=== PATIENT | female | born 1955 | race Caucasian/White ===

== ENCOUNTER → 2018-05-22 | Outpatient (CLI) | payer BC ==
--- NOTE | 2018-05-24 11:18 | MM ---
Reason for exam: screening (asymptomatic). Last mammogram was performed 5 years and 3 months ago. History: Patient is postmenopausal. Physical Findings: A clinical breast exam by your physician is recommended on an annual basis and results should be correlated with mammographic findings. MG 3D Screening Mammo W/Cad Bilateral CC and MLO view(s) were taken. Prior study comparison: February 15, 2013, mammogram, performed at [place]. There are scattered fibroglandular densities. No significant changes when compared with prior studies. ASSESSMENT: Negative, BI-RAD 1 RECOMMENDATION: Routine screening mammogram of both breasts in 1 year.
== END ==
LOC: RADMAMWWP 15:38
PROVIDERS: ATTEND Family Medicine
DX: Z12.31 Encounter for screening mammogram for malignant neoplasm of breast (principal)
CPT/HCPCS: 77063; 77067

== ENCOUNTER → 2019-09-18 | Outpatient (CLI) | payer BC, MEDICARE ==
--- NOTE | 2019-09-19 12:05 | MM ---
Reason for exam: screening (asymptomatic). Last mammogram was performed 1 year and 4 months ago. History: Patient is postmenopausal. Physical Findings: A clinical breast exam by your physician is recommended on an annual basis and results should be correlated with mammographic findings. MG Screening Mammo w CAD Bilateral CC and MLO view(s) were taken. Prior study comparison: May 22, 2018, bilateral MG 3d screening mammo w/cad. February 15, 2013, mammogram, performed at [place]. There are scattered fibroglandular densities. Benign appearing calcifications in the left breast. No suspicious abnormality. Focal asymmetry of the right upper outer quadrant is stable. No significant changes when compared with prior studies. ASSESSMENT: Benign, BI-RAD 2 RECOMMENDATION: Routine screening mammogram of both breasts in 1 year. Manage on a clinical basis with regard to left breast reported swelling. If there is focal pain diagnostic mammogram and ultrasound would be recommended.
== END | disposition home or self-care (01) ==
LOC: RADMAMWWP 07:42
PROVIDERS: ATTEND Family Medicine
DX: Z12.31 Encounter for screening mammogram for malignant neoplasm of breast (principal)
CPT/HCPCS: 77067

== ENCOUNTER → 2020-01-29 | Outpatient (CLI) | payer BC ==
--- NOTE | 2020-01-30 00:25 | CONS ---
CONSULTATION This patient is a 64-year-old lady who has been evaluated in the sleep center for obstructive sleep apnea-hypopnea syndrome. HISTORY OF PRESENT ILLNESS/SLEEP-WAKE EVALUATION: Patient's has long history of obstructive sleep apnea. She is on treatment with CPAP, which has been done in another institution several years ago. Presently, her sleep schedule from 10 p.m. until 6:10 a.m. No problems with falling asleep. No TV in bedroom. She usually sleeps on the stomach position. She wakes up from sleep 2 times with up to 2 episodes of nocturia. During the day sometimes she feels sleepiness. Gwinner Sleepiness Scale increased to 10. She may take up to 3 naps a day when she is sleepy. Her machine is old. PAST MEDICAL HISTORY: Positive for hip problems, episodes of atrial fibrillation during surgery in 2011. PAST SURGICAL HISTORY: Left hip replacement 2009, right hip replacement 2011. MEDICATIONS: A baby aspirin, Advil, and Claritin. SOCIAL HISTORY: Negative for smoking or using alcohol. REVIEW OF SYSTEMS: Awakenings from sleep, sleepiness during the day. PHYSICAL EXAMINATION: GENERAL: lady without distress. VITAL SIGNS: BP 146/82, HR 72, RR 16, height 5 feet 2 inches, weight 242, body mass index 44.2, temperature 98.3, oxygen saturation at room air 99%. HEENT: PERRLA, EOMI. Oropharynx small oropharyngeal air space, wide pillars, moderate low soft palate. Neck 15 inches in circumference. NECK: Supple, no JVD. Thyroid is not palpable. LUNGS: Clear to percussion and to auscultation. Good air exchange. No wheezing or rhonchi. HEART: S1, S2 regular. No murmurs, gallops, or rubs. ABDOMEN: Obese. EXTREMITIES: No clubbing or cyanosis. EQUIPMENT SERVICE ASSOCIATE: Awake, alert, and oriented X3. Cranial nerves 2 to 7 intact. There is no fasciculation or atrophy. noted. No focal deficits observed. IMPRESSION: 1. Obstructive sleep apnea-hypopnea syndrome for many years, awakenings from sleep while using her CPAP, sleepiness during the day. Gwinner Sleepiness Scale is 10. 2. Obesity, body mass index 44.2. 3. Status post right hip replacement. 4. Status post left hip replacement. 5. History of atrial fibrillation. PLAN: 1. Home sleep apnea test for evaluation of patient breathing during the sleep. 2. Following plan depending of results of the sleep study. 3. Prescription for new CPAP unit after evaluation will be done. 4. Losing weight. 5. No driving if feeling sleepiness. Thank you very much for referring this patient for consultation. Sincerely, Manuel Mancia MD, PhD, FAASM Diplomat of [place] Board of Medical Specialties Citizen [place] Board of Internal Medicine Director Instrumentation of [facility] [place] MMODL / YOLANDAN: [id number] /
== END | disposition home or self-care (01) ==
LOC: SLEEP 13:49
PROVIDERS: ATTEND Internal Medicine
DX: G47.33 Obstructive sleep apnea (adult) (pediatric) (principal); E66.9 Obesity, unspecified; Z79.82 Long term (current) use of aspirin; Z68.41 Body mass index [BMI] 40.0-44.9, adult; Z96.641 Presence of right artificial hip joint; Z96.642 Presence of left artificial hip joint; Z96.643 Presence of artificial hip joint, bilateral; Z86.79 Personal history of other diseases of the circulatory system
CPT/HCPCS: 99211

== ENCOUNTER → 2020-04-08 | Outpatient (CLI) | payer BC ==
--- NOTE | 2020-04-08 22:16 | SFUN ---
SLEEP CENTER FOLLOW UP NOTE DATE OF SERVICE: 04/08/2020 This patient is a 64-year-old lady has been followed in the sleep center for treatment of obstructive sleep apnea-hypopnea syndrome. The patient is successfully using her new CPAP unit. She likes it and sleeps well with the CPAP. Gates Sleepiness Scale today, though, is slightly increased at 13. I explained to the patient in detail the results of her home sleep apnea test, which showed apnea-hypopnea index 15.6. I checked the patient's CPAP unit. Range of pressure is from 5 to 20, average pressure 11 cm of water, usage, 30/30 nights for more than 4 hours with average usage 7.5 hours per night. Leak is only 2 L/minute. Apnea-hypopnea index 0.7, which is absolutely perfect. MEDICATIONS: Claritin, Advil. PHYSICAL EXAMINATION: GENERAL: A pleasant patient in no distress. VITAL SIGNS: BP 136/76, HR 78, RR 16, weight 242, temperature 98.2, oxygen saturation at room air 97%. HEENT: PERRLA, EOMI. Evaluation of oropharynx showed tongue protrudes midline. Moderately low position of soft palate. Mallampati III. NECK: Supple. No JVD. Thyroid is not palpable. LUNGS: Clear to percussion and to auscultation. Good air exchange. No wheezing or rhonchi. HEART: S1, S2 regular. No murmurs, gallops or rubs. ABDOMEN: Obese. EXTREMITIES: No clubbing or cyanosis. ADDICTION PSYCHIATRIST: Awake, alert, and oriented X3. Cranial nerves 2 to 7 intact. There is no fasciculation or atrophy. noted. No focal deficits observed. IMPRESSION: 1. Obstructive sleep apnea-hypopnea syndrome. Patient demonstrated good compliance with treatment, benefitting from treatment. 2. Obesity. 3. Status post right hip replacement. 4. Status post left hip replacement. 5. History of atrial fibrillation. PLAN: 1. Patient will continue to use PAP equipment every night for the whole night. 2. Sleep hygiene with regular time in bed for at least 7-1/2 to 8 hours. 3. Precautions related to driving. No driving if feeling sleepiness. 4. I will maintain all necessary prescription for PAP supplies including mask, tube, filters. 5. Watching weight. 6. No driving if feeling sleepiness. 7. Follow-up visit in 6 months or earlier if patient has any problems. Thank you very much for allowing me to participate in the management of your patient. Sincerely, Manuel Mancia MD, PhD, FAASM Diplomat of [place] [employer] Specialties [place] [employer] Medicine Filer Repairer of [facility] [place] MMTACHO / TAYO: [id number] /
== END | disposition home or self-care (01) ==
LOC: SLEEP 15:19
PROVIDERS: ATTEND Internal Medicine
DX: G47.33 Obstructive sleep apnea (adult) (pediatric) (principal); E66.9 Obesity, unspecified; Z96.643 Presence of artificial hip joint, bilateral; Z86.79 Personal history of other diseases of the circulatory system; Z99.89 Dependence on other enabling machines and devices

== ENCOUNTER → 2021-01-05 | Outpatient (CLI) | payer BC ==
--- NOTE | 2021-01-06 14:31 | XR ---
Bilateral shoulders HISTORY: Chronic pain 3 views of each shoulder submitted There is overlying artifact. Arthropathy is present at the acromioclavicular joints. No fracture or d islocation. Distal acromial spur is noted on the right. There is marked arthropathy in the right join t space loss, subchondral geode formation and sclerosis, marginal spurring. Suspect synovial chondrom atosis, loose bodies at the level of the left shoulder with air is also joint space loss and marginal spurring, subchondral sclerosis. IMPRESSION: Osteoarthritis. Possible loose bodies left shoulder. Correlate for impingement.
== END | disposition home or self-care (01) ==
LOC: RADXRYALE 16:49
PROVIDERS: ATTEND Physician Assistant Medical
DX: M19.011 Primary osteoarthritis, right shoulder (principal); M19.012 Primary osteoarthritis, left shoulder

== ENCOUNTER → 2021-10-06 | Outpatient (CLI) | payer BC ==
[2021-10-06 15:21] LABS: INR 0.9 (<1.2); Partial Thromboplastin Time 23.8 sec (22.0-30.0); Prothrombin Time 10.1 sec (9.0-12.0)
[2021-10-06 15:33] LABS: Amorphous Sediment,Urine Rare /hpf; Appearance,Urine Cloudy (Clear); Bacteria,Urine Moderate /hpf; Bilirubin,Urine Negative (Negative); Blood,Urine Negative (Negative); Color,Urine Yellow; Glucose,Urine (UA) Negative (Negative); Ketones,Urine Negative (Negative); Leukocyte Esterase,Urine Negative (Negative); Mucus,Urine Rare /hpf; Nitrite,Urine Negative (Negative); Protein,Urine Negative (Negative); RBC,Urine 1 /hpf (0-5); Specific Gravity,Urine 1.021 (1.001-1.035); Squamous Epithelial Cell,Urine 2 /hpf (0-4); Urobilinogen,Urine <2.0 mg/dL (<2.0); WBC,Urine 1 /hpf (0-5)
[2021-10-07 01:09] LABS: African American GFR (CKD) 69.3 (60.0-200.0); Albumin 4.3 g/dL (3.8-4.9); Albumin/Globulin Ratio 1.41 (1.60-3.17); Anion Gap 15.4 mmol/L (10.00-18.00); BUN/Creat Ratio 18.81 Ratio (12.00-20.00); Blood Urea Nitrogen 18.3 mg/dL (9.0-27.0); Calcium 9.3 mg/dL (8.7-10.3); Carbon Dioxide 22.4 mmol/L (20.0-27.5); Non-African American GFR(CKD) 59.8 (60.0-200.0); Potassium 3.9 mmol/L (3.5-5.5); Total Bilirubin 0.5 mg/dL (0.30-1.20); Total Protein 7.3 g/dL (6.2-8.2)
[2021-10-07 01:51] LABS: HCT 44.9 % (37.2-46.3); HGB 14.5 g/dL (12.0-15.0); MCH 31.2 pg (27.0-32.0); MCHC 32.3 g/dL (32.0-37.0); MCV 96.6 fL (80.0-97.0); Mean Platelet Volume 11.5 fL (9.5-12.2); NRBC Per 100 WBC 0 /100 WBCS (0.0-0.0); Platelet Count 276 X 10*3/uL (140-440); RBC 4.65 X 10*6/uL (4.10-5.20); RDW 13.1 % (11.5-14.5); WBC 9.11 X 10*3/uL (4.50-10.00)
== END | disposition home or self-care (01) ==
LOC: LABPAT 14:24
PROVIDERS: ATTEND Orthopaedic Surgery
DX: Z01.812 Encounter for preprocedural laboratory examination (principal)
CPT/HCPCS: 80053; 81001; 85027; 85610; 85730; 87070; 93005

== ENCOUNTER 2021-10-24 12:16 | Day surgery (SDC) | payer BC ==
[2021-10-19 10:51] VITALS: BMI 44.2
[~2021-10-24 12:16] MED LIST: ACETAMINOPHEN TAB 500 MG TAB PO PRN; DEXAMETHASONE SOD PHOSPHATE 4 MG/ML 1 ML VIAL IV ONE; GABAPENTIN 300 MG CAP PO PRN; HYDROmorphone 0.5 MG/0.5 ML SYRINGE IVP PRN; LACTATED RINGERS 1,000 ML IV SCH; LIDOCAINE 1% (10MG/ML) FOR IV START INTRADERMA PRN; MELOXICAM 7.5 MG TAB PO PRN; MIDAZOLAM 2 MG/2 ML VIAL IV PRN; ONDANSETRON 4 MG/2 ML VIAL IVP ONE; TRANEXAMIC ACID IN NACL,ISO-OS 1,000 MG in SALINE 1 100ML.BAG IVPB PRN
[2021-10-24] MEDS ORDERED: HYDROmorphone 0.2 MG/1 ML SYRINGE IVP PRN (13:10)
[2021-10-24] MEDS ORDERED: HYDROmorphone 0.5 MG/0.5 ML SYRINGE IVP PRN ×2 (13:10)
[2021-10-24] MEDS ORDERED: ONDANSETRON 4 MG/2 ML VIAL IVP PRN (13:10)
[2021-10-24 13:11] LABS: Glucose,Whole Blood 109 mg/dL (75-99)
[2021-10-24] MEDS ORDERED: HYDROcodone/APAP 7.5-325MG 1 EACH TAB PO PRN ×2 (13:12)
[2021-10-24] MEDS ORDERED: SODIUM CHLORIDE 0.9% 1,000 ML IV SCH (13:15)
[2021-10-24] MEDS ORDERED: MIDAZOLAM 2 MG/2 ML VIAL IVP ONE (13:48)
[2021-10-24] MEDS ORDERED: fentaNYL (PF) 50 MCG/ML 2 ML AMP IVP ONE (13:49)
[2021-10-24] MEDS ORDERED: ROCURONIUM 10 MG/ML (5 ML VIAL) IV ONE (14:05)
[2021-10-24] MEDS ORDERED: ROPIVACAINE 5 MG/ML 30 ML VIAL ONE (14:05)
[2021-10-24] MEDS ORDERED: DEXAMETHASONE SOD PHOSPHATE 4 MG/ML 1 ML VIAL ONE (14:05)
[2021-10-24] MEDS ORDERED: fentaNYL (PF) 50 MCG/ML 2 ML AMP ONE (14:05)
[2021-10-24] MEDS ORDERED: NEOSTIGMINE 1 MG/ML 10 ML VIAL ONE (14:05)
[2021-10-24] MEDS ORDERED: TRANEXAMIC ACID IN NACL,ISO-OS 1,000 MG/100 ML BAG ONE (14:05)
[2021-10-24] MEDS ORDERED: GLYCOPYRROLATE 0.2 MG/ML 2 ML VIAL ONE (14:05)
[2021-10-24] MEDS ORDERED: PROPOFOL 10 MG/ML 20 ML VIAL IV ONE (14:05)
[2021-10-24] MEDS ORDERED: SUCCINYLCHOLINE CHLORIDE 100 MG/5 ML SYR IV ONE (14:05)
[2021-10-24] MEDS ORDERED: ceFAZolin 1,000 MG in SODIUM CHLORIDE 0.9% 1,000 ML IRRIGATION ONE (14:08)
--- NOTE | 2021-10-24 15:03 | P.OP ---
Date of Procedure: 10/24/21 Preoperative Diagnosis: Osteoarthritis right shoulder Postoperative Diagnosis: Osteoarthritis right shoulder Procedure(s) Performed: Right shoulder hemiarthroplasty Implants: Biomet Howell humeral resurfacing head, size 4 Anesthesia: JATINDER Surgeon: Cy Jean Explosive Operator #1: Jacquelin Pedersen Estimated Blood Loss (ml): 30 Pathology: none sent Condition: stable Disposition: PACU Indications for Procedure: This is a 66-year-old female that presented to my office with painful arthritis right shoulder. We discussed the surgical treatment options including conservative care, hemiarthroplasty, and total shoulder arthroplasty. After lengthy discussion she has decided she wishes to proceed with a hemiarthroplasty of her right shoulder with possible total shoulder arthroplasty, and informed consent was obtained. Operative Findings: Operative findings are consistent with severe osteoarthritis of the right shoulder, mainly limited to the humeral head. Description of Procedure: The patient was seen in the preoperative area, consent was reviewed, and operative site was marked with a skin marker. Patient was then brought to the operating room and given preoperative antibiotics intravenously. Patient was also given 1 g of Tranexamic acid intravenously. A general anesthetic was administered by the anesthesia department. A Dela Cruz catheter was placed by the nursing staff. The patient was then placed in a beachchair position with the bony prominences well-padded and the head secured. The shoulder was then prepped and draped in the usual sterile fashion. A universal timeout was then performed, which confirmed the patient's name, surgical site, ALLERGIES, and consent. A standard deltopectoral approach was performed. The skin and subcutaneous tissue was sharply dissected down to the deltoid fascia. The cephalic vein was then identified and retracted medially. The deltopectoral interval was then utilized to expose the subscapularis tendon. A retractor was then placed under the coracobrachialis tendon retracted medially, and the deltoid. The axillary nerve is palpated and protected throughout the procedure. The subscapularis tendon was then released and retracted medially. The humeral head was then exposed easily. After the humeral head was exposed, osteophytes were removed with a Ronguer. The glenoid was visualized and found to have a mild amount of arthrosis, but compatible for hemiarthroplasty. The proximal humerus was exposed. After all the osteophytes and then removed the shoulder was measured and found to be a size 4 implant. Using the drill guide for size 4 implant, the guidewire was placed in the center of the humeral head. Next, using appropriate reamer humeral head was then reamed. Next, the central plug was then reamed over the guidewire. The guidewire was then removed and the implant was opened. The final humeral implant was impacted and fully seated on the proximal humerus. The shoulder was then reduced and taken through a range of motion and found to be stable with no evidence of any crepitance. Shoulder was then irrigated with pulsatile lavage. The shoulder was then irrigated with Irrisept solution. A second dose of 1 g of Tranexamic acid was given. The subscapularis was then repaired with #1 Vicryl. The deltopectoral interval was then closed with #1 Vicryl as well. The subcutaneous tissues were closed with 2-0 Vicryl then 3-0 strata fix suture. Exofin skin glue was applied. A sterile dressing was then applied, the patient was transported to the recovery room in an arm sling in stable condition. The visitor services information assistant JOSEFA Aguilar was required due the complexity of surgery and the need for a skilled surgical coordinator.
[2021-10-24 15:39] VITALS: TEMP 97.1
--- NOTE | 2021-10-24 16:11 | XR ---
EXAMINATION TYPE: XR shoulder limited RT DATE OF EXAM: 10/24/2021 COMPARISON: NONE HISTORY: 66-year-old female postoperative evaluation right shoulder TECHNIQUE: Single AP view FINDINGS: Images show interval placement of a resurfacing right shoulder arthroplasty. Alignment appe ars grossly anatomic. Possible slight narrowing of the subacromial space due to the resurfacing compo nent. No acute fracture or dislocation. IMPRESSION: Interval placement of a resurfacing right shoulder arthroplasty. The subacromial space appears somewh at narrowed. This may be projectional. Recommend clinical correlation.
[2021-10-24 16:17] VITALS: PULSE 57
[2021-10-24 16:33] VITALS: BP 133/74; RESP 18
--- NOTE | 2021-10-24 17:17 | P.ANPRN ---
Procedure Note - Anesthesia - Nerve Block Performed Right Interscalene Single Time Out Performed: Yes Date of Procedure: 10/24/21 Procedure Start Time: 13:47 Procedure Stop Time: 13:55 Location of Patient: PreOp Indication: Requested by Surgeon Specifically requested for management of pain by DrAshley: Cy Jean Sedation Type: Sedate with meaningful contact maintained Preparation: Sterile Prep Position: Supine Needle Types: Pajunk Needle Gauge: 21 Ultrasound used to visualize needle placement: Yes Ultrasound used to observe medication spread: Yes Injectate: 0.5% Ropivacaine (see comment for volume) (25 ml + 4 mg Dexamethason) Blood Aspirated: No Pain Paresthesia on Injection Noted: No Resistance on Injection: Normal Image Stored and Saved: Yes Events: Uneventful and Well Tolerated
== END 2021-10-24 17:11 | disposition home or self-care (01) ==
LOC: OR 12:16
PROVIDERS: ATTEND Orthopaedic Surgery
DX: M19.011 Primary osteoarthritis, right shoulder (principal)
CPT/HCPCS: 23470; 64415; 76942; 73020; C1776; J2250; J1100; J2710; J0690 ×2; J2405; J3010; J2795; J0330; J2704

== ENCOUNTER → 2022-01-09 | Outpatient (CLI) | payer BC ==
[2022-01-09 10:18] LABS: INR 0.9 (<1.2); Partial Thromboplastin Time 23.7 sec (22.0-30.0); Prothrombin Time 10.2 sec (9.0-12.0)
[2022-01-09 14:32] LABS: HCT 42.7 % (37.2-46.3); HGB 13.7 g/dL (12.0-15.0); MCH 30.8 pg (27.0-32.0); MCHC 32.1 g/dL (32.0-37.0); Mean Platelet Volume 10.8 fL (9.5-12.2); NRBC Per 100 WBC 0 /100 WBCS (0.0-0.0); Platelet Count 259 X 10*3/uL (140-440); RBC 4.45 X 10*6/uL (4.10-5.20); RDW 13.9 % (11.5-14.5); WBC 6.97 X 10*3/uL (4.50-10.00)
[2022-01-09 14:44] LABS: African American GFR (CKD) 107.1 (60.0-200.0); Albumin 4.2 g/dL (3.8-4.9); Albumin/Globulin Ratio 1.49 (1.60-3.17); Anion Gap 11.8 mmol/L (10.00-18.00); BUN/Creat Ratio 27.68 Ratio (12.00-20.00); Blood Urea Nitrogen 17.3 mg/dL (9.0-27.0); Calcium 9.2 mg/dL (8.7-10.3); Globulin 2.8 g/dL (1.6-3.3); Non-African American GFR(CKD) 92.4 (60.0-200.0); Potassium 4.1 mmol/L (3.5-5.5); Total Bilirubin 0.7 mg/dL (0.30-1.20)
[2022-01-09 15:39] LABS: Appearance,Urine Clear (Clear); Bilirubin,Urine Negative (Negative); Blood,Urine Negative (Negative); Color,Urine Yellow (Yellow); Ketones,Urine Negative (Negative); Nitrite,Urine Negative (Negative); Specific Gravity,Urine 1.008 (1.001-1.030); Urobilinogen,Urine 0.2 (0.2,1.0)
== END | disposition home or self-care (01) ==
LOC: LABWHC1 09:10
PROVIDERS: ATTEND Orthopaedic Surgery
DX: Z01.812 Encounter for preprocedural laboratory examination (principal)
CPT/HCPCS: 36415; 80053; 81003; 85027; 85610; 85730; 87070

== ENCOUNTER 2022-01-30 05:33 | Day surgery (SDC) | payer BC ==
[2022-01-26 15:35] VITALS: BMI 44.2
[~2022-01-30 05:33] MED LIST changes: -DEXAMETHASONE SOD PHOSPHATE 4 MG/ML 1 ML VIAL IV ONE; -HYDROmorphone 0.5 MG/0.5 ML SYRINGE IVP PRN; -LACTATED RINGERS 1,000 ML IV SCH; -LIDOCAINE 1% (10MG/ML) FOR IV START INTRADERMA PRN; -MIDAZOLAM 2 MG/2 ML VIAL IV PRN; -ONDANSETRON 4 MG/2 ML VIAL IVP ONE
[2022-01-30] MEDS ORDERED: HYDROmorphone 0.5 MG/0.5 ML SYRINGE IVP PRN (05:36)
[2022-01-30] MEDS ORDERED: ONDANSETRON 4 MG/2 ML VIAL IVP ONE (05:36)
[2022-01-30] MEDS ORDERED: LACTATED RINGERS 1,000 ML IV SCH (05:36)
[2022-01-30] MEDS ORDERED: LIDOCAINE 1% (10MG/ML) FOR IV START INTRADERMA PRN (05:36)
[2022-01-30 06:27] LABS: Glucose,Whole Blood 137 mg/dL (70-110)
[2022-01-30] MEDS ORDERED: fentaNYL (PF) 50 MCG/ML 2 ML AMP ONE (07:00)
[2022-01-30] MEDS ORDERED: SUCCINYLCHOLINE CHLORIDE 100 MG/5 ML SYR IV ONE (07:00)
[2022-01-30] MEDS ORDERED: LIDOCAINE 2% INJ 20 MG/ML (2 ML VIAL) ONE (07:00)
[2022-01-30] MEDS ORDERED: ROPIVACAINE 5 MG/ML 30 ML VIAL ONE (07:00)
[2022-01-30] MEDS ORDERED: PROPOFOL 10 MG/ML 20 ML VIAL IV ONE (07:00)
[2022-01-30] MEDS ORDERED: MIDAZOLAM 2 MG/2 ML VIAL ONE (07:00)
[2022-01-30] MEDS ORDERED: TRANEXAMIC ACID IN NACL,ISO-OS 1,000 MG/100 ML BAG ONE (07:00)
[2022-01-30] MEDS ORDERED: DEXAMETHASONE SOD PHOSPHATE 4 MG/ML 1 ML VIAL ONE (07:00)
[2022-01-30] MEDS ORDERED: PHENYLEPHRINE-0.9% NACL SYG 1,000 MCG/10 ML SYRINGE ONE (07:00)
[2022-01-30] MEDS ORDERED: ceFAZolin 1,000 MG in SODIUM CHLORIDE 0.9% 1,000 ML IRRIGATION ONE (07:05)
[2022-01-30 07:06] VITALS: RESP 16
--- NOTE | 2022-01-30 07:41 | P.ANPRN ---
Procedure Note - Anesthesia - Nerve Block Performed Left Interscalene Single Time Out Performed: Yes ([id number]) Date of Procedure: 01/30/22 Procedure Start Time: 06:53 Procedure Stop Time: 06:57 Location of Patient: PreOp Indication: Acute Post-Operative Pain, Requested by Surgeon Specifically requested for management of pain by DrAshley: Cy Jean Sedation Type: Sedate with meaningful contact maintained Preparation: Sterile Prep Position: Supine Catheter: None Needle Types: Pajunk Needle Gauge: 21 Ultrasound used to visualize needle placement: Yes Ultrasound used to observe medication spread: Yes Injectate: 0.5% Ropivacaine (see comment for volume) (30cc + 4cc decadron) Blood Aspirated: No Pain Paresthesia on Injection Noted: No Resistance on Injection: Normal Image Stored and Saved: Yes Events: Uneventful and Well Tolerated
--- NOTE | 2022-01-30 08:00 | P.OP ---
Date of Procedure: 01/30/22 Preoperative Diagnosis: Severe osteoarthritis left shoulder Postoperative Diagnosis: Severe osteoarthritis left shoulder Procedure(s) Performed: Hemiarthroplasty left shoulder Implants: Biomet Howell humeral resurfacing head, size 4 Anesthesia: JATINDER Surgeon: Cy Jean Scrub Tech #1: Lauren Carlson Estimated Blood Loss (ml): 25 Pathology: none sent Condition: stable Disposition: PACU Indications for Procedure: This is a 66-year-old female presented to my office with pain in her left shoulder secondary to osteoarthritis. She's had a prior right shoulder hemiarthroplasty was then well wishes to have the same procedure for her left shoulder. Informed consent was obtained. Operative Findings: The operative findings are consistent with severe osteoarthritis of left shoulder Description of Procedure: The patient was seen in the preoperative area, consent was reviewed, and operative site was marked with a skin marker. Patient was then brought to the operating room and given preoperative antibiotics intravenously. Patient was also given 1 g of Tranexamic acid intravenously. A general anesthetic was administered by the anesthesia department. A Dela Cruz catheter was placed by the nursing staff. The patient was then placed in a beachchair position with the bony prominences well-padded and the head secured. The shoulder was then prepped and draped in the usual sterile fashion. A universal timeout was then performed, which confirmed the patient's name, surgical site, ALLERGIES, and consent. A standard deltopectoral approach was performed. The skin and subcutaneous tissue was sharply dissected down to the deltoid fascia. The cephalic vein was then identified and retracted medially. The deltopectoral interval was then utilized to expose the subscapularis tendon. A retractor was then placed under the coracobrachialis tendon retracted medially, and the deltoid. The axillary nerve is palpated and protected throughout the procedure. The subscapularis tendon was then released and retracted medially. The humeral head was then exposed easily. After the humeral head was exposed, osteophytes were removed with a Ronguer. The glenoid was inspected have just mild arthrosis. The shoulder was sized and found to be a size 4. Size 4 trial was then placed over the humeral head and a guide pin was inserted into the center of the humeral head. Size 4 reamer was then used to ream the humeral head. The central hole was then drilled. The components were then opened and implanted impacted. The shoulder was then reduced and taken through a full range of motion and found to be stable. Shoulder was then irrigated with pulsatile lavage. The shoulder was then irrigated with Irrisept solution. A second dose of 1 g of Tranexamic acid was g iven. The subscapularis was then repaired with #1 Vicryl. The deltopectoral interval was then closed with #1 Vicryl as well. The subcutaneous tissues were closed with 3-0 Vicryl followed by 30 strata fix suture. Exofin glue was placed on the skin. A sterile dressing was then applied, the patient was transported to the recovery room in an arm sling in stable condition. The optometrist assistant JOSEFA White was required due the complexity of surgery and the need for a skilled surgical training specialist.
[2022-01-30 08:20] VITALS: TEMP 98.4
--- NOTE | 2022-01-30 08:43 | XR ---
EXAMINATION TYPE: XR shoulder limited LT DATE OF EXAM: 01/30/2022 COMPARISON: 10/24/2021 HISTORY: Postop replacement TECHNIQUE: AP left shoulder FINDINGS: Humeral head prosthesis is in place. There is stable calcification inferior to the humeral head prosthesis. Acromioclavicular junction appears normal. No acute fractures are evident. IMPRESSION: 1. No acute fractures post humeral head replacement.
[2022-01-30] MEDS ORDERED: LACTATED RINGERS 1,000 ML IV ONE (10:05)
[2022-01-30 10:48] VITALS: PULSE 77
[2022-01-30 11:08] VITALS: BP 135/83
[2022-01-30] MEDS ORDERED: ceFAZolin 2 GM in SODIUM CHLORIDE 0.9% 100 ML IVPB ONE (13:00)
== END 2022-01-30 11:40 | disposition home or self-care (01) ==
LOC: OR 05:33
PROVIDERS: ATTEND Orthopaedic Surgery
DX: M19.012 Primary osteoarthritis, left shoulder (principal); M25.511 Pain in right shoulder; G89.18 Other acute postprocedural pain; Z96.611 Presence of right artificial shoulder joint; Z96.643 Presence of artificial hip joint, bilateral; Z96.653 Presence of artificial knee joint, bilateral; Z79.82 Long term (current) use of aspirin; Z79.899 Other long term (current) drug therapy; Z88.8 Allergy status to other drugs, medicaments and biological substances; Z88.7 Allergy status to serum and vaccine; F17.210 Nicotine dependence, cigarettes, uncomplicated; E11.69 Type 2 diabetes mellitus with other specified complication; E78.2 Mixed hyperlipidemia; E55.9 Vitamin D deficiency, unspecified; G47.33 Obstructive sleep apnea (adult) (pediatric); E66.9 Obesity, unspecified; Z68.41 Body mass index [BMI] 40.0-44.9, adult; Z82.49 Family history of ischemic heart disease and other diseases of the circulatory system
CPT/HCPCS: 64415; 76942; 73020; 23472; C1776; J2250; J1100; J0690 ×2; J2405; J3010; J2795; J2370; J0330; J2704; J2001

== ENCOUNTER → 2022-05-09 | Outpatient (CLI) | payer BC ==
--- NOTE | 2022-05-09 22:03 | XR ---
EXAMINATION TYPE: XR cervical spine comp DATE OF EXAM: 05/09/2022 4:40 PM INDICATION: Patient age:Female; 66 years old; Reason for study: [id number]; [facility]. COMPARISON: None TECHNIQUE: The cervical spine was imaged in 5 projections. Frontal, lateral, odontoid and bilateral o blique. FINDINGS: The osseous structures show normal alignment without evidence of an acute fracture. There are osteoph ytes noted throughout the cervical spine on the anterior and lateral aspects of the vertebral bodies. The intervertebral disk spaces are preserved. Pedicles are intact. Soft tissues are within normal limits. The odontoid appears intact. Facet joint arthropathy results in neural foraminal stenosis wor se at C5-6 and C6-7. IMPRESSION: 1. No fracture or dislocation. 2. Mild degenerative disc disease changes of the cervical spine. 3. Multilevel neural foraminal stenosis worse at C5-C6 and C6-C7.
--- NOTE | 2022-05-09 22:04 | XR ---
EXAMINATION TYPE: XR thoracic spine complete DATE OF EXAM: 05/09/2022 4:40 PM INDICATION: Patient age:Female; 66 years old; Reason for study: [id number]; [facility]. COMPARISON: None TECHNIQUE: 2 views of the thoracic spine in Frontal and lateral projections. FINDINGS: No evidence of acute fracture. There is no evidence of disk space narrowing or loss of vertebral bod y height. There is normal alignment of the thoracic vertebral bodies. Right upper quadrant cholecyste ctomy clips. Shoulder arthroplasty changes are noted. Multilevel disc degeneration changes with osteo phyte formation and mild disc space narrowing. IMPRESSION: 1. No acute osseous pathology. 2. Mild to moderate multilevel disc degeneration changes.
--- NOTE | 2022-05-09 22:05 | XR ---
EXAMINATION TYPE: XR knee complete LT DATE OF EXAM: 05/09/2022 4:39 PM INDICATION: Patient age:Female; 66 years old; Reason for study: [id number]; [facility]. COMPARISON: None. TECHNIQUE: The Left knee(s) was examined in 3 projections. Frontal, lateral and oblique. FINDINGS: No evidence of any acute osseous pathology, soft tissue swelling, or joint effusion is no marsha. Tricompartmental osteophyte formation involving the femoral condyles, tibial plateau and patella. Th ere is patellofemoral joint space narrowing. IMPRESSION: 1. No acute osseous pathology. 2. Moderate to severe tricompartmental osteoarthritic changes. Findings worse in the patellofemoral j oint.
== END | disposition home or self-care (01) ==
LOC: RADXRYALE 15:51
PROVIDERS: ATTEND Physician Assistant Medical
DX: M25.562 Pain in left knee (principal); M54.2 Cervicalgia; M54.13 Radiculopathy, cervicothoracic region; M54.6 Pain in thoracic spine
CPT/HCPCS: 72050; 72072

== ENCOUNTER → 2022-05-25 | Outpatient (CLI) | payer BC ==
--- NOTE | 2022-05-25 20:00 | MR ---
EXAMINATION TYPE: MR cervical spine wo con DATE OF EXAM: 05/25/2022 COMPARISON: Plain film 05/09/2022 HISTORY: Neck pain, LUE weakness. TECHNIQUE: Multiplanar, multisequence images of the cervical spine were acquired without contrast. C2-C3: No evidence for degenerative disc disease. No disc bulge/herniation or protrusion. No Canal stenosis. Foramina are patent bilaterally. C3-C4: There is some left-sided foraminal encroachment due to uncovertebral joint hypertrophy and fac et arthropathy change. No evident disc herniation. C4-C5: Small posterior disc protrusion present centrally. There is some right-sided foraminal encroac hment due to uncovertebral joint hypertrophy. C5-C6: Small posterior central disc protrusion is present causing some anterior mass effect on the th ecal sac. Bilateral foraminal encroachment is present left greater than right due to uncovertebral barby int hypertrophy. C6-C7: There is some right greater than left foraminal encroachment due to uncovertebral joint hypert rophy. Posterior extension endplate disc complex causes mild anterior mass effect on the thecal sac. C7-T1: No evidence for degenerative disc disease. No disc bulge/herniation or protrusion. No Canal stenosis. Foramina are patent bilaterally. Cervical segments are intact. There is normal alignment. Cervical spinal cord is of normal signal. Craniovertebral junction relationships are within normal limits. No significant spinal stenosis. Th ere is multilevel spondylosis with loss of disc height signal at intervertebral levels greatest at C4 -5, C5-6 and C6-7, endplate discogenic marrow signal change consistent with disc desiccation and dege nerative disc disease. There is motion artifact on the exam. IMPRESSION: Degenerative disc disease, multilevel foraminal encroachment as described.
== END | disposition home or self-care (01) ==
LOC: RADMRIMAIN 17:45
PROVIDERS: ATTEND Family Medicine
DX: M50.30 Other cervical disc degeneration, unspecified cervical region (principal); M62.81 Muscle weakness (generalized); R93.7 Abnormal findings on diagnostic imaging of other parts of musculoskeletal system
CPT/HCPCS: 72141

== ENCOUNTER → 2022-06-05 | Outpatient (CLI) | payer BC ==
--- NOTE | 2022-06-06 10:43 | MM ---
Reason for Exam: Screening (asymptomatic). Last mammogram was performed 2 year(s) and 8 month(s) ago. Patient History: Menarche at age 9. First Full-Term at age 18. Left ovary removed at age 43. Right ovary removed at age 43. Hysterectomy at age 38. Postmenopausal. Patient has history of breast feeding. Sister had breast cancer, age 80. Risk Values: Caitlin 5 year model risk: 3.6%. NCI Lifetime model risk: 11.3%. Prior Study Comparison: 02/15/2013 Screening Mammogram, [place]. 05/22/2018 Bilateral Screening Mammogram, [facility]. 09/18/2019 Bilateral Screening Mammogram, [facility]. Tissue Density: There are scattered fibroglandular densities. Findings: Analyzed By CAD. Benign-appearing vascular calcification in the bilateral breasts is redemonstrated. There is no suspicious new group of microcalcifications or new suspicious mass in either breast. Overall Assessment: Benign, BI-RAD 2 Management: Screening Mammogram of both breasts in 1 year. A clinical breast exam by your physician is recommended on an annual basis and results should be correlated with mammographic findings. Electronically signed and approved by: Tunde Malone M.D.
== END | disposition home or self-care (01) ==
LOC: RADMAMWWP 16:23
PROVIDERS: ATTEND Family Medicine
DX: Z12.31 Encounter for screening mammogram for malignant neoplasm of breast (principal); Z78.0 Asymptomatic menopausal state; Z80.3 Family history of malignant neoplasm of breast; Z90.721 Acquired absence of ovaries, unilateral
CPT/HCPCS: 77063; 77067

== ENCOUNTER → 2024-01-15 | Outpatient (CLI) | payer MEDICARE ==
--- NOTE | 2024-01-17 09:19 | MM ---
Reason for Exam: Screening (asymptomatic). Last mammogram was performed 1 year(s) and 8 month(s) ago. Patient History: Menarche at age 9. First Full-Term at age 18. Left ovary removed at age 43. Right ovary removed at age 43. Hysterectomy at age 38. Postmenopausal. Patient has history of breast feeding. Sister had breast cancer, age 80. Risk Values: Caitlin 5 year model risk: 3.6%. NCI Lifetime model risk: 10.4%. Prior Study Comparison: 05/22/2018 Bilateral Screening Mammogram, [facility]. 09/18/2019 Bilateral Screening Mammogram, [facility]. 06/05/2022 Bilateral MG 3D screening mammo w/cad, [facility]. Tissue Density: There are scattered areas of fibroglandular density. Findings: Analyzed By CAD. There is no suspicious group of microcalcifications or new suspicious mass in either breast. Overall Assessment: Negative, BI-RAD 1 Management: Screening Mammogram of both breasts in 1 year. . Patient should continue monthly self-breast exams. A clinical breast exam by your physician is recommended on an annual basis. This exam should not preclude additional follow-up of suspicious palpable abnormalities. Note on Caitlin scores and lifetime risk: 1. A Caitlin score greater than 3% is considered moderate risk. If this is the case, consider specialist referral to assess eligibility for a risk reducing agent. 2. If overall lifetime risk for the development of breast cancer is 20% or higher, the patient may qualify for future screening with alternating mammogram and breast MRI. Electronically signed and approved by: Ravi Palacios M.D. [facility]
== END | disposition home or self-care (01) ==
LOC: RADMAMWWP 15:29
PROVIDERS: ATTEND Family Medicine
DX: Z12.31 Encounter for screening mammogram for malignant neoplasm of breast (principal); Z80.3 Family history of malignant neoplasm of breast; Z78.0 Asymptomatic menopausal state
CPT/HCPCS: 77063; 77067